=== PATIENT | male | born 1950 | race Caucasian/White ===

== ENCOUNTER → 2018-01-27 | Outpatient (CLI) | payer MEDICARE ==
[~2018-01-27] MED LIST: ACET1TAB22; ASPI81TA94 PO; FAMO40TA66 PO; IBUP400T13; METO25TA23 PO; OMEG300C PO; PANT40TA65 PO; PRAV40TA78 PO; TRAM-420 PO
[2018-01-27 11:11] LABS: PLATELET COUNT, AUTOMATED 176 K/uL (150-450)
[2018-01-27 11:30] LABS: LDL CHOLESTEROL 20 mg/dl
== END ==
LOC: LAB 10:46
PROVIDERS: ATTEND Internal Medicine
DX: Z12.5 Encounter for screening for malignant neoplasm of prostate (principal); I12.9 Hypertensive chronic kidney disease with stage 1 through stage 4 chronic kidney disease, or unspecified chronic kidney disease; N18.9 Chronic kidney disease, unspecified; E78.5 Hyperlipidemia, unspecified; I25.10 Atherosclerotic heart disease of native coronary artery without angina pectoris
CPT/HCPCS: 36415; 84443; 85025; G0103; 82040; 82247; 82310; 82374; 82435; 82465; 82565; 82947; 83718; 84075; 84132; 84153; 84155; 84295; 84450; 84460; 84478; 84520

== ENCOUNTER → 2018-07-28 | Outpatient (CLI) | payer MEDICARE ==
[~2018-07-28] MED LIST changes: +DICL-190 PO
--- NOTE | 2018-07-28 13:51 | RADIOLOGY IMAGING REPORT ---
FACILITY: [facility] - [place] PATIENT NAME: Rasta Strauss : 1950 MR: [id number] V: [id number] EXAM DATE: ORDERING PHYSICIAN: ALVIN LUJAN TECHNOLOGIST: Location: [facility] Patient: Rasta Strauss : 1950 Visit/Account:[id number] Date of Sevice: 07/28/2018 EXAMINATION: Cervical spine radiographs HISTORY: Neck pain COMPARISON: None. FINDINGS: Lateral, frontal and odontoid views obtained. Vertebral body heights are normal. No fracture or prevertebral soft tissue swelling. The visible cristhian ngs are clear. Mild multilevel bilateral narrowing. Facet arthropathy. Moderate C4-5 and moderate to severe C5-6 disc space degeneration. Slight retrolisthesis of C5 on C6. IMPRESSION: 1. Moderate C4-5 and moderate to severe C5-6 disc space degeneration. 2. Mild multilevel bilateral facet arthropathy. Report Dictated By: Kojo Wilson MD at 07/28/2018 1:44 PM Report E-Signed By: Kojo Wilson MD at 07/28/2018 1:46 PM WSN:[id number]
== END ==
LOC: RAD 11:38
PROVIDERS: ATTEND Internal Medicine
DX: M51.36 Other intervertebral disc degeneration, lumbar region (principal); I25.10 Atherosclerotic heart disease of native coronary artery without angina pectoris; I10 Essential (primary) hypertension; M12.88 Other specific arthropathies, not elsewhere classified, other specified site
CPT/HCPCS: 72040

== ENCOUNTER → 2018-09-16 | Outpatient (CLI) | payer MEDICARE ==
[2018-09-16 10:07] LABS: PLATELET COUNT, AUTOMATED 171 K/uL (150-450)
[2018-09-16 10:38] LABS: LDL CHOLESTEROL 15 mg/dl
== END ==
LOC: LAB 09:41
PROVIDERS: ATTEND Internal Medicine
DX: I25.10 Atherosclerotic heart disease of native coronary artery without angina pectoris (principal); E78.5 Hyperlipidemia, unspecified; I10 Essential (primary) hypertension
CPT/HCPCS: 36415; 81001; 82040; 82247; 82310; 82374; 82435; 82465; 82565; 82947; 83718; 84075; 84132; 84155; 84295; 84443; 84450; 84460; 84478; 84520; 85025

== ENCOUNTER → 2019-02-23 | Outpatient (CLI) | payer MEDICARE ==
[~2019-02-23] MED LIST changes: +DULO30CA35 PO; +DULO60CA56 PO; +MELO-207 PO; +PRAV20TA66 PO; +TRAZ50TA34 PO
[2019-02-23 12:55] LABS: PLATELET COUNT, AUTOMATED 177 K/uL (150-450)
[2019-02-23 13:53] LABS: LDL CHOLESTEROL 50 mg/dl
== END ==
LOC: LAB 12:28
PROVIDERS: ATTEND Internal Medicine
DX: I25.10 Atherosclerotic heart disease of native coronary artery without angina pectoris (principal); I10 Essential (primary) hypertension; E78.5 Hyperlipidemia, unspecified; F41.9 Anxiety disorder, unspecified; G47.9 Sleep disorder, unspecified
CPT/HCPCS: 36415; 81001; 82040; 82247; 82310; 82374; 82435; 82465; 82565; 82947; 83718; 84075; 84132; 84155; 84295; 84443; 84450; 84460; 84478; 84520; 85025